=== PATIENT | female | born 1985 | race Caucasian/White ===

== ENCOUNTER 2017-11-22 05:24 | Inpatient (IN) | payer OTHER ==
[2017-11-22] MEDS ORDERED: Ondansetron 4 MG/2 ML SDV IVPUSH PRN (15:55)
[2017-11-22] MEDS ORDERED: Nalbuphine 20 MG/1 ML Amp IVPUSH PRN (15:55)
[2017-11-22] MEDS ORDERED: Sodium Chloride 0.9% 10 ML Syringe FLUSH PRN (15:55)
[2017-11-22] MEDS ORDERED: Lidocaine 1% 50 ML MDV INJECT ONE (15:55)
[2017-11-22] MEDS ORDERED: Oxytocin/Lactated Ringers 10 UNIT/1,000 ML BAG IV SCH (16:00)
[2017-11-22] MEDS: Lactated Ringers 1,000 ML IV SCH ×4 (20:26→23:23)
[2017-11-22] MEDS ORDERED: fentaNYL 100 MCG/2 ML SDV EPIDUR PRN (21:27)
[2017-11-22] MEDS ORDERED: diphenhydrAMINE 50 MG/ML SDV IVPUSH PRN (21:27)
[2017-11-22] MEDS ORDERED: ePHEDrine 50 MG/ML SDV IVPUSH PRN (21:27)
[2017-11-22] MEDS ORDERED: Bupivacaine/fentaNYL/NS 100 ML Bag EPIDUR SCH (21:30)
--- NOTE | 2017-11-22 21:31 | PCM.LDHP ---
L&D History of Present Illness - General Date of Service: 11/22/17 Admit Problem/Dx: Patient Status Order with Admit Dx/Problem 11/22/17 15:56 Patient Status [ADT] Routine Admission Diagnosis/Problem Admission Diagnosis/Problem Source of Information: Patient History Limitations: Reports: No Limitations - History of Present Illness Introduction:: Reason for admission: 40-4/7 weeks gestational age IUP, Artificial rupture membranes induction of labor History of present illness: The patient iis a 32-year-old 3 para 2001 was an KAVITA of 11/18/2017 is based upon a certain last menstrual which started on 02/11/2017 and is supported by ultrasounds on 05/04/2017 and 07/22/2017. Patient's previous history of section with her first in 2013. C- section done because of HELLP syndrome. Last patient desired to and was successful on 02/29/2016, delivering an 8 lbs. 1 oz. female infant here at [facility]. The procedure of repeat section versus attempt at trial of labor to achieve vaginal after section are discussed in detail. She appears to understand the procedure, risks, benefits, medications possibly to be used and wishes to again do a trial of labor after section to attempt a vaginal after section. She has signed consent for trial of labor after section for an attempt at vaginal after section and also for a repeat section. 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 The patient was seen early in the course of the and an ultrasound was done confirming her due date at 11/18/2017. First visit was at 11 weeks and 5 days. Weight at that time was 184. Weight at last visit at 209. This is a 25 pound weight gain. Her vital signs were stable throughout the course. Her blood pressure was 126/76 on last evaluation. Fundal height growth has been appropriate. Patient declined genetic evaluation. Her and her depression screening score 07/14/2017 was negative. Group B strep screen is negative. Risk factors include increased distance from the hospital, history of HELLP syndrome with her first child. Patient plans to breast-feed the baby. She is rubella nonimmune and therefore recommendation is made for an MMR post delivery in the labor and delivery. Laboratory testing shows her blood type to be B+ with a negative airway screen. First labs shows hemoglobin 13.8 and platelets of 277,000. Rubella titer shows nonimmunity. RPR shows her nonreactivity. Urine culture unremarkable. Hepatitis B surface antigen and HIV assays both negative. Chlamydia and gonorrhea assays both negative. Second trimester labs including Anisha 12.2 g she deciliter and platelets 201,000. Her 1 hour GTT was 92. She is group B strep negative. Allergies: none Medications: vitamins daily Past medical history: 1. Vaginal delivery 1 2.HELLP syndrome first 3. History of abnormal Pap smear with colposcopy following Past surgical history: 1. section for increased blood pressure and HELLP syndrome Family history: Mother is alive and with hypertension. Father with high cholesterol. 3 sisters and 2 brothers are alive and well. All grandparents to secondary to old age. No Pring C, clotting or bleeding abnormalities noted. Questionable paternal grandfather secondary to some type of cancer. Type unknown. 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 She does not use any significant most alcohol, drugs or tobacco. View systems: General patient doing well. Baby's been active. Occasional [place] contractions. Skin: Negative Cardiovascular: No history of exercise intolerance or chest pain Respiratory: No shortness of breath or infectious symptoms Breasts: Changes associated only GI: Negative : Findings associated . Cervix is 2 cm, 80% effaced, -3, mid position , soft. Musculoskeletal: Negative Neurological: Negative. Physical exam: Last dilation in clinic on 11/22/2017 blood pressure is 126/76, weight was 209 with pregravid weight 184 for weight gain of 25 pounds. heart rate 145. In general patient is well-developed, well-nourished, pleasant female stated no acute distress. Skin is warm and dry without lesions. HEENT, neck and back within normal limits. Cardiovascular exam shows regular and rhythm without murmurs. Lungs are clear with good breath sounds in all lung [place]. Breast exam is deferred abdomen done at her first visit and found to be normal. Abdomen is protuberant with fundal height of 39 cm baby in vertex presentation. Cervix is 2 cm dilated, 80% effaced, -3 station, mid position, soft. Extremities show trace edema otherwise unremarkable. Neurological exam is grossly within normal. 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: Other OB/BYN History: HELLP syndrome with - Past Surgical History Female Surgical History: Reports: Section Social & Family History - Family History Family Medical History: Noncontributory - Tobacco Use Smoking Status *Q: Never Smoker Second Hand Smoke Exposure: No - Caffeine Use Caffeine Use: Reports: Coffee Other Caffeine Use: 1-2 daily - Recreational Drug Use Recreational Drug Use: No H&P Review of Systems - Review of Systems: Review Of Systems: See Below L&D Exam - Exam Exam: See Below - Vital Signs Vital Signs: Last Vital Signs Temp 36.7 C 11/22/17 15:56 Pulse 77 11/22/17 15:56 Resp 18 11/22/17 15:56 BP 129/81 11/22/17 15:56 Pulse Ox 100 11/22/17 15:56 Weight: 95.708 kg - Patient Data Lab Results Last 24 hrs: Laboratory Results - last 24 hr 11/22/17 11/22/17 Range/Units 15:45 15:45 WBC 8.86 (3.98-10.04) K/mm3 RBC 4.18 (3.98-5.22) M/mm3 Hgb 12.6 (11.2-15.7) gm/L Hct 36.6 (34.1-44.9) % MCV 87.6 (79.4-94.8) fl MCH 30.1 (25.6-32.2) pg MCHC 34.4 (32.2-35.5) g/dl RDW Std Deviation 39.9 (36.4-46.3) fL Plt Count 205 (182-369) K/mm3 MPV 11.0 (9.4-12.3) fl Neut % (Auto) 81.0 H (34.0-71.1) % Lymph % (Auto) 12.2 L (19.3-51.7) % [place] % (Auto) 6.1 (4.7-12.5) % Eos % (Auto) 0.2 L (0.7-5.8) Baso % (Auto) 0.0 L (0.1-1.2) % Neut # (Auto) 7.18 H (1.56-6.13) K/mm3 Lymph # (Auto) 1.08 L (1.18-3.74) K/mm3 [place] # (Auto) 0.54 H (0.24-0.36) K/mm3 Eos # (Auto) 0.02 L (0.04-0.36) K/mm3 Baso # (Auto) 0.00 L (0.01-0.08) K/mm3 Blood Type B POSITIVE Gel Antibody Screen Negative Result Diagrams: 11/22/17 15:45 Problem List Initiated/Reviewed/Updated: Yes Orders Last 24hrs: Active Orders 24 hr Category Date Time Status Patient Status [ADT] Routine ADT 11/22/17 15:56 Active Activity as Tolerated [RC] PFP Care 11/22/17 15:56 Active Antiembolic Devices [RC] .Routine Care 11/22/17 15:57 Active Communication Order [RC] ASDIRECTED Care 11/22/17 15:56 Active Communication Order [RC] ASDIRECTED Care 11/22/17 15:56 Active Communication Order [RC] ASDIRECTED Care 11/22/17 15:56 Active Communication Order [RC] ASDIRECTED Care 11/22/17 15:56 Active Notify Provider [RC] ASDIRECTED Care 11/22/17 15:56 Active Notify Provider [RC] PFP Care 11/22/17 15:56 Active Notify Provider [RC] PRN Care 11/22/17 15:56 Active Peripheral IV Care [RC] . DIRECTED Care 11/22/17 15:56 Active Urinary Catheter Assessment [RC] ASDIRECTED Care 11/22/17 15:55 Active VTE/DVT Education [RC] Care 11/22/17 15:57 Active Vital Signs [RC] Care 11/22/17 15:56 Active Regular Diet [DIET] Diet 11/22/17 Lunch Active Lactated Ringers [Ringers, Lactated] 1,000 ml Med 11/22/17 16:00 Active IV ASDIRECTED Lactated Ringers [Ringers, Lactated] 1,000 ml Med 11/22/17 16:00 Active IV ASDIRECTED Nalbuphine [Nubain] Med 11/22/17 15:55 Active 10 mg IVPUSH Q2H PRN Ondansetron [Zofran] Med 11/22/17 15:55 Active 4 mg IVPUSH Q4H PRN Oxytocin [Pitocin] 10 unit Med 11/22/17 20:30 Active Lactated Ringers [Ringers, Lactated] 1,000 ml IV TITRATE Oxytocin/Lactated Ringers [Pitocin in LR 10 Units/1,000 Med 11/22/17 16:00 Active ML] 10 unit in 1,000 ml IV .CONTINUOUS Sodium Chloride 0.9% [Saline Flush] Med 11/22/17 15:55 Active 10 ml FLUSH ASDIRECTED PRN DVT/VTE Prophylaxis Reflex [OM.PC] Routine Ot 11/22/17 15:57 Ordered Electronic Heart Tones Ext w TOCO [WOMSER] Oth 11/22/17 15:56 Ordered Routine Electronic Heart Tones Internal [WOMSER] Per Unit Ot 11/22/17 15:56 Ordered Routine Peripheral IV Insertion Adult [OM.PC] Routine Oth 11/22/17 15:56 Ordered Peripheral IV Insertion Adult [OM.PC] Routine Ot 11/22/17 15:56 Ordered Resuscitation Status Routine Resus Stat 11/22/17 15:55 Ordered Medication Orders Lactated Ringer's (Ringers, Lactated) 1,000 mls @ 100 mls/hr IV ASDIRECTED ABEL Lactated Ringer's (Ringers, Lactated) 1,000 mls @ 40 mls/hr IV ASDIRECTED ABEL Last Admin: 11/22/17 20:26 Dose: 40 mls/hr Oxytocin/Lactated Ringer's (Pitocin In Lr 10 Units/1,000 Ml) 10 unit in 1,000 mls @ 500 mls/hr IV .CONTINUOUS ABEL Oxytocin 10 unit/ Lactated (Ringer's) 1,001 mls @ 12.01 mls/hr IV TITRATE ABEL; 2 MUNITS/MIN PRN Reason: Protocol Last Admin: 11/22/17 20:35 Dose: 2 munits/min, 12.01 mls/hr Nalbuphine HCl (Nubain) 10 mg IVPUSH Q2H PRN PRN Reason: Pain (moderate 4-6) Ondansetron HCl (Zofran) 4 mg IVPUSH Q4H PRN PRN Reason: Nausea/Vomiting Sodium Chloride (Saline Flush) 10 ml FLUSH ASDIRECTED PRN PRN Reason: Keep Vein Open Assessment/Plan Comment:: 1. 40-4/7 week intrauterine , admitted for elective induction of labor with artificial rupture membranes. 2. Risk factors for the include history of previous section, patient has successfully with last 3. History of HELLP syndrome with first requiring section due to effect delivery. 4. Rubella nonimmune 5. Group B strep screen is negative 6. T dap given on 09/05/2017 Plan: 1. Discussion is held patient has 2 risks, benefits and alternatives of care and a term living at approximately 100 miles distance from the hospital with a history of previous section with successful 1. She appears to understand, and wishes to receive a trial of labor after section to attempt a vaginal after section. 2. section labs have been drawn 3. Consents for both trial of labor after section for Avaginal after section and section 4. Laboratory testing consistent CBC, urinalysis, type and screen 5. We'll proceed with artificial rupture membranes, will give Pitocin augmentation as necessary. 6. Patient plans to breast-feed 7. Rubella vaccination to be given after delivery.
--- NOTE | 2017-11-22 22:02 | PCM.PREANE ---
Preanesthetic Assessment - Anesthesia/Transfusion/Family Hx Anesthesia History: Prior Anesthesia Without Reaction Family History of Anesthesia Reaction: No Transfusion History: No Prior Transfusion(s) Type of Transfusion Reactions: Reports: Unknown - Review of Systems General: No Symptoms Pulmonary: No Symptoms Cardiovascular: No Symptoms Gastrointestinal: No Symptoms Neurological: No Symptoms Other: Reports: None - Physical Assessment Pulse: 84 O2 Sat by Pulse Oximetry: 100 Respiratory Rate: 18 Blood Pressure: 124/72 Temperature: 36.3 C Vital Signs: Last Vital Signs Temp 36.7 C 11/22/17 15:56 Pulse 77 11/22/17 15:56 Resp 18 11/22/17 15:56 BP 129/81 11/22/17 15:56 Pulse Ox 100 11/22/17 15:56 Height: 1.68 m Weight: 95.708 kg ASA Class: 2 Mental Status: Alert & Oriented x3 Airway Class: Mallampati = 1 Dentition: Reports: Normal Dentition Thyro-Mental Finger Breadths: 3 Mouth Opening Finger Breadths: 3 ROM/Head Extension: Full Lungs: Clear to Auscultation, Normal Respiratory Effort Cardiovascular: Regular Rate, Regular Rhythm - Lab Values: Laboratory Last Values WBC 8.86 K/mm3 (3.98-10.04) 11/22/17 15:45 RBC 4.18 M/mm3 (3.98-5.22) 11/22/17 15:45 Hgb 12.6 gm/L (11.2-15.7) 11/22/17 15:45 Hct 36.6 % (34.1-44.9) 11/22/17 15:45 MCV 87.6 fl (79.4-94.8) 11/22/17 15:45 MCH 30.1 pg (25.6-32.2) 11/22/17 15:45 MCHC 34.4 g/dl (32.2-35.5) 11/22/17 15:45 RDW Std Deviation 39.9 fL (36.4-46.3) 11/22/17 15:45 Plt Count 205 K/mm3 (182-369) 11/22/17 15:45 MPV 11.0 fl (9.4-12.3) 11/22/17 15:45 Neut % (Auto) 81.0 % (34.0-71.1) H 11/22/17 15:45 Lymph % (Auto) 12.2 % (19.3-51.7) L 11/22/17 15:45 [place] % (Auto) 6.1 % (4.7-12.5) 11/22/17 15:45 Eos % (Auto) 0.2 (0.7-5.8) L 11/22/17 15:45 Baso % (Auto) 0.0 % (0.1-1.2) L 11/22/17 15:45 Neut # (Auto) 7.18 K/mm3 (1.56-6.13) H 11/22/17 15:45 Lymph # (Auto) 1.08 K/mm3 (1.18-3.74) L 11/22/17 15:45 [place] # (Auto) 0.54 K/mm3 (0.24-0.36) H 11/22/17 15:45 Eos # (Auto) 0.02 K/mm3 (0.04-0.36) L 11/22/17 15:45 Baso # (Auto) 0.00 K/mm3 (0.01-0.08) L 11/22/17 15:45 Blood Type B POSITIVE 11/22/17 15:45 Gel Antibody Screen Negative 11/22/17 15:45 - Allergies Allergies/Adverse Reactions: Allergies Allergy/AdvReac Type Severity Reaction Status Date / Time No Known Allergies Allergy Verified 11/22/17 19:21 - Anesthesia Plan Pre-Op Medication Ordered: None - Acknowledgements Anesthesia Type Planned: Epidural Pt an Appropriate Candidate for the Planned Anesthesia: Yes Alternatives and Risks of Anesthesia Discussed w Pt/Guardian: Yes Pt/Guardian Understands and Agrees with Anesthesia Plan: Yes PreAnesthesia Questionnaire - Past Health History Medical/Surgical History: Denies Medical/Surgical History Gastrointestinal History: Reports: GERD 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 OB/BYN History: HELLP syndrome with - Past Surgical History Female Surgical History: Reports: Section - SUBSTANCE USE Smoking Status *Q: Never Smoker Second Hand Smoke Exposure: No Recreational Drug Use History: No - HOME MEDS Home Medications: Home Meds Pnv No.122/Iron/Folic Acid [ Multi Tablet] 1 each PO DAILY 11/22/17 [ History] - CURRENT (IN HOUSE) MEDS Current Meds: Current Medications Diphenhydramine HCl (Benadryl) 25 mg IVPUSH Q6H PRN PRN Reason: Itching Ephedrine Sulfate (Ephedrine Sulfate) 5 mg IVPUSH ASDIRECTED PRN PRN Reason: HYPOTENTSION Fentanyl (Sublimaze) 100 mcg EPIDUR Q3H PRN PRN Reason: PAIN Last Admin: 11/22/17 21:54 Dose: 100 mcg Fentanyl/Bupivacaine HCl (Fentanyl/Bupivacaine/Ns 2 Mcg-0.125% 100 Ml) 100 ml EPIDUR ASDIRECTED ABEL Last Admin: 11/22/17 21:54 Dose: 100 ml Lactated Ringer's (Ringers, Lactated) 1,000 mls @ 100 mls/hr IV ASDIRECTED ABEL Last Admin: 11/22/17 21:34 Dose: 100 mls/hr Lactated Ringer's (Ringers, Lactated) 1,000 mls @ 40 mls/hr IV ASDIRECTED [facility] Last Admin: 11/22/17 20:26 Dose: 40 mls/hr Oxytocin/Lactated Ringer's (Pitocin In Lr 10 Units/1,000 Ml) 10 unit in 1,000 mls @ 500 mls/hr IV .CONTINUOUS ABEL Oxytocin 10 unit/ Lactated (Ringer's) 1,001 mls @ 12.01 mls/hr IV TITRATE ABEL; 2 MUNITS/MIN PRN Reason: Protocol Last Admin: 11/22/17 20:35 Dose: 2 munits/min, 12.01 mls/hr Nalbuphine HCl (Nubain) 10 mg IVPUSH Q2H PRN PRN Reason: Pain (moderate 4-6) Ondansetron HCl (Zofran) 4 mg IVPUSH Q4H PRN PRN Reason: Nausea/Vomiting Sodium Chloride (Saline Flush) 10 ml FLUSH ASDIRECTED PRN PRN Reason: Keep Vein Open Discontinued Medications Lidocaine HCl (Xylocaine 1%) 20 ml INJECT ONETIME ONE Stop: 11/22/17 15:56
[2017-11-23] MEDS: Lactated Ringers 1,000 ML IV SCH (02:56)
[2017-11-23] MEDS ORDERED: Witch Hazel Medicated Pads 100/Jar TOP PRN (05:47)
[2017-11-23] MEDS ORDERED: Lanolin 100% Cream 7 GM Tube TOP PRN (05:47)
[2017-11-23] MEDS ORDERED: Docusate Sodium 100 MG Cap PO PRN (05:47)
[2017-11-23] MEDS ORDERED: Acetaminophen 325 MG Tab PO PRN (05:47)
[2017-11-23] MEDS ORDERED: Benzocaine/Menthol 20%-0.5% Spray 56 GM Canister TOP PRN (05:47)
--- NOTE | 2017-11-23 05:49 | PCM.SN ---
- Free Text/Narrative Note: Delivery note: Chichi was admitted on the afternoon of 11/22/2017 for elective artificial rupture membranes induction of labor. She was 40-3/7 weeks gestational age on admission. Artificial rupture of membranes was undertaken with resultant clear amniotic fluid. She progressed into an early labor pattern. She was augmented with Pitocin and intensify the contractions. Patient has had a previous section which was done for HELLP syndrome. She previously successfully VBACed and wished to attempt a trial labor after section again. The risks, benefits, cautions were all discussed patient. She signed the consent for both the trial of labor after section and A repeat section. Routine precautions such as obtaining C- section labs, informing the surgical department and anesthesia that patient was in labor and near continuous monitoring were all put in place. She made slow but steady progress and at approximately 0450 hrs. on 11/23/2017 she became completely dilated. she pushed 3 contractions and at 0524 hrs. delivered a viable, cade, male infant with Apgars of 8/9 , a weight of 3690 grams (8#, 2 oz), a length of 21 inches. The baby delivered in a direct occiput anterior position. Nose and mouth were bulb suctioned and baby was placed on mom's abdomen. The cord was clamped 2 and was cut by the father. The umbilical cord had 3 vessels. Cord blood was obtained. Dose was administered IV after delivery of the baby to facilitate increase in uterine tone and decrease bleeding. Patient had no vaginal or perineal lacerations. The placenta delivered at 0528 hrs. in a Negro presentation, appeared intact and complete. It was discarded per patient desire. Estimated blood loss was 100 mL. Patient plans to breast-feed. Condition was good.
[2017-11-23] MEDS: Ibuprofen 600 MG Tab PO PRN ×3 (06:36→21:31)
--- NOTE | 2017-11-23 09:45 | PCM48HPAN ---
Post Anesthesia Note - EVALUATION WITHIN 48HRS OF ANESTHETIC Vital Signs in Normal Range: Yes Patient Participated in Evaluation: Yes Respiratory Function Stable: Yes Airway Patent: Yes Cardiovascular Function Stable: Yes Hydration Status Stable: Yes Pain Control Satisfactory: Yes Nausea and Vomiting Control Satisfactory: Yes Mental Status Recovered: Yes - COMMENTS/OBSERVATIONS Free Text/Narrative:: Patient doing well resting in chair. No complaints of back pain, residual numbness or tingling to LE, or headaches.
[2017-11-23] MEDS: Prenatal Multivitamin with Calcium/Folic Acid/Iron Tab PO SCH (10:16)
[2017-11-23] MEDS ORDERED: Measles, Mumps & Rubella Vaccine 0.5 ML SDV SUBCUT ONE (20:36)
[2017-11-23] MEDS ORDERED: Bupivacaine 0.25% 10 ML SDV ONE (22:22)
[2017-11-24] MEDS: Ibuprofen 600 MG Tab PO PRN (05:58)
--- NOTE | 2017-11-24 06:30 | PCM.DCSUM1 ---
Discharge Summary - Hospital Course Free Text/Narrative:: Chichi was admitted on the afternoon of 11/22/2017 for elective artificial rupture membranes induction of labor. She was 40-3/7 weeks gestational age on admission. Artificial rupture of membranes was undertaken with resultant clear amniotic fluid. She progressed into an early labor pattern. She was augmented with Pitocin and intensify the contractions. Patient has had a previous section which was done for HELLP syndrome. She previously successfully VBACed and wished to attempt a trial labor after section again. The risks, benefits, cautions were all discussed patient. She signed the consent for both the trial of labor after section and A repeat section. Routine precautions such as obtaining labs, informing the surgical department and anesthesia that patient was in labor and near continuous monitoring were all put in place. She made slow but steady progress and at approximately 0450 hrs. on 11/23/2017 she became completely dilated. she pushed 3 contractions and at 0524 hrs. delivered a viable, cade, male with Apgars of 8/9 , a weight of 3690 grams (8#, 2 oz), a length of 21 inches. The baby delivered in a direct occiput anterior position. Nose and mouth were bulb suctioned and baby was placed on mom's abdomen. The cord was clamped 2 and was cut by the father. The umbilical cord had 3 vessels. Cord blood was obtained. Dose was administered IV after delivery of the baby to facilitate increase in uterine tone and decrease bleeding. Patient had no vaginal or perineal lacerations. The placenta delivered at 0528 hrs. in a Negro presentation, appeared intact and complete. It was discarded per patient desire. Estimated blood loss was 100 mL. Patient plans to breast-feed. patient has done well. She is ambulating well, nursing without problems. She is voiding without concerns and has minimal lochia. Patient is desiring discharge home today. Her vital signs were stable. She has been afebrile. - Discharge Data Discharge Date: 11/24/17 Discharge Disposition: Home, Self-Care 01 Condition: Good - Patient Instructions Diet: Regular Diet as Tolerated (Nursing diet was increased calories and calcium as directed) Activity: As Tolerated (No intercourse or tampons until bleeding stops.) Driving: May Drive Today Showering/Bathing: May Shower Notify Provider of: Fever, Increased Pain, Swelling and Redness, Nausea and/or Vomiting - Discharge Plan Home Medications: Home Meds Pnv No.122/Iron/Folic Acid [ Multi Tablet] 1 each PO DAILY 11/22/17 [ History] Acetaminophen [Tylenol] 650 mg PO Q4H PRN tablet 11/24/17 [Rx] Docusate Sodium [Colace] 100 mg PO BID PRN cap 11/24/17 [Rx] Ibuprofen [IJD: Ibuprofen] 600 mg PO Q4H PRN tablet 11/24/17 [Rx] Referrals: Kemal Ribeiro MD [Physician] - (Return to clinicDr. Ribeiro-2 weeks.) - Discharge Summary/Plan Comment DC Time >30 min.: No Discharge Summary/Plan Comment: Discharge instructions: 1. Discharge home 2. Diet, activity and follow-up discussed with patient. Recommend nursing diet with increased calories and calcium. 3. Precautions given concern increased pain, bleeding, temperature, signs/ symptoms of DVT/PE. 4. Medications per home medication was printed, discussed with and given to the patient. 5. Return to clinic-Dr. Ribeiro[facility] in 2 weeks. Diagnosis: Term -delivered Condition: Good - Patient Data Vitals - Most Recent: Last Vital Signs Temp 36.8 C 11/23/17 20:12 Pulse 79 11/23/17 20:12 Resp 18 11/23/17 20:12 BP 117/80 11/23/17 20:12 Pulse Ox 99 11/23/17 20:12 Weight - Most Recent: 95.708 kg I&O - Last 24 hours: Intake & Output 11/23/17 11/23/17 11/24/17 14:59 22:59 06:59 Intake Total 1320 Balance 1320 Med Orders - Current: Current Medications Acetaminophen (Tylenol) 650 mg PO Q4H PRN PRN Reason: mild pain or fever Benzocaine/Menthol (Dermoplast Pain Relief [place]) 0 gm TOP ASDIRECTED PRN PRN Reason: Perineal Comfort Measure Docusate Sodium (Colace) 100 mg PO BID PRN PRN Reason: Constipation Emollient Ointment (Lansinoh Hpa) 0 gm TOP ASDIRECTED PRN PRN Reason: Sore Nipples Ibuprofen (Motrin) 600 mg PO Q4H PRN PRN Reason: Mild pain or fever Last Admin: 11/24/17 05:58 Dose: 600 mg Prenat Multivit/[place]/Iron/Folic Ac ( Plus Iron) 1 each PO DAILY ABEL Last Admin: 11/23/17 10:16 Dose: 1 each [place] (Tucks) 1 pad TOP ASDIRECTED PRN PRN Reason: Hemorrhoid pain Last Admin: 11/23/17 06:37 Dose: 1 tub Discontinued Medications Bupivacaine HCl (Sensorcaine-Mpf 0.25%) 10 ml .ROUTE .STK-MED ONE Stop: 11/23/17 22:23 Diphenhydramine HCl (Benadryl) 25 mg IVPUSH Q6H PRN PRN Reason: Itching Ephedrine Sulfate (Ephedrine Sulfate) 5 mg IVPUSH ASDIRECTED PRN PRN Reason: HYPOTENTSION Fentanyl (Sublimaze) 100 mcg EPIDUR Q3H PRN PRN Reason: PAIN Last Admin: 11/22/17 21:54 Dose: 100 mcg Fentanyl/Bupivacaine HCl (Fentanyl/Bupivacaine/Ns 2 Mcg-0.125% 100 Ml) 100 ml EPIDUR ASDIRECTED [facility] Last Admin: 11/22/17 21:54 Dose: 100 ml Lactated Ringer's (Ringers, Lactated) 1,000 mls @ 100 mls/hr IV ASDIRECTED [facility] Last Admin: 11/23/17 02:56 Dose: 100 mls/hr Lactated Ringer's (Ringers, Lactated) 1,000 mls @ 40 mls/hr IV ASDIRECTED [facility] Last Admin: 11/22/17 22:15 Dose: 125 mls/hr Oxytocin/Lactated Ringer's (Pitocin In Lr 10 Units/1,000 Ml) 10 unit in 1,000 mls @ 500 mls/hr IV .CONTINUOUS [facility] Oxytocin 10 unit/ Lactated (Ringer's) 1,001 mls @ 12.01 mls/hr IV TITRATE ABEL; 2 MUNITS/MIN PRN Reason: Protocol Last Titration: 11/23/17 06:30 Dose: 250 mls/hr Lidocaine HCl (Xylocaine 1%) 20 ml INJECT ONETIME ONE Stop: 11/22/17 15:56 Last Admin: 11/23/17 13:44 Dose: Not Given Measles/Mumps/Rubella Vaccine Live (M-M-R Ii Vaccine) 0.5 ml SUBCUT .ONCE ONE Stop: 11/23/17 20:37 Last Admin: 11/23/17 20:45 Dose: 0.5 ml Nalbuphine HCl (Nubain) 10 mg IVPUSH Q2H PRN PRN Reason: Pain (moderate 4-6) Ondansetron HCl (Zofran) 4 mg IVPUSH Q4H PRN PRN Reason: Nausea/Vomiting Sodium Chloride (Saline Flush) 10 ml FLUSH ASDIRECTED PRN PRN Reason: Keep Vein Open *Q Meaningful Use (DIS) - VTE *Q VTE Criteria *Q: - Stroke *Q Stroke Criteria *Q: - AMI *Q AMI Criteria *Q:
[2017-11-24] MEDS: Prenatal Multivitamin with Calcium/Folic Acid/Iron Tab PO SCH (08:41)
[2017-11-24 08:56] VITALS: BP 118/78
== END 2017-11-24 09:30 | disposition home or self-care (01) | DRG 775 ==
LOC: JD.OB 05:24 → INTOOBSV 14:43 → OBSVTOIN 11-23 05:24 → JD.OB 11-23 05:24
PROVIDERS: ADMIT Obstetrics & Gynecology; ATTEND Obstetrics & Gynecology
PROC: 10E0XZZ Delivery of Products of Conception, External Approach (ICD-10-PCS; principal; 2017-11-23)
PROC: 10907ZC Drainage of Amniotic Fluid, Therapeutic from Products of Conception, Via Natural or Artificial Opening (ICD-10-PCS; 2017-11-23)
PROC: 00HU33Z Insertion of Infusion Device into Spinal Canal, Percutaneous Approach (ICD-10-PCS; 2017-11-23)
PROC: 3E0R3BZ Introduction of Anesthetic Agent into Spinal Canal, Percutaneous Approach (ICD-10-PCS; 2017-11-23)
PROC: 3E0234Z Introduction of Serum, Toxoid and Vaccine into Muscle, Percutaneous Approach (ICD-10-PCS; 2017-11-24)
DX: O48.0 Post-term pregnancy (principal); Z3A.41 41 weeks gestation of pregnancy; Z37.0 Single live birth; O34.211 Maternal care for low transverse scar from previous cesarean delivery; N85.8 Other specified noninflammatory disorders of uterus; Z23 Encounter for immunization
CPT/HCPCS: 36415; 51702; 59409; 85025; 85027; 86850; 86900; 86901; 90471; 90707; A9270-GY; J2590; J3010; J7120

== ENCOUNTER 2020-03-05 12:10 | Inpatient (IN) | payer OTHER ==
[2020-03-05] MEDS ORDERED: Nalbuphine 10 MG/ML Syringe IVPUSH PRN (12:19)
[2020-03-05] MEDS ORDERED: Sodium Chloride 0.9% 10 ML Syringe FLUSH PRN (12:19)
[2020-03-05] MEDS ORDERED: Ondansetron 4 MG/2 ML SDV IVPUSH PRN (12:19)
[2020-03-05] MEDS ORDERED: Oxytocin 10 Units/1 ML SDV IM ONE (12:19)
[2020-03-05] MEDS ORDERED: Oxytocin/Lactated Ringers 10 UNIT/1,000 ML BAG IV SCH ×2 (12:30)
[2020-03-05] MEDS: Lactated Ringers 1,000 ML IV SCH ×2 (13:25→15:15)
[2020-03-05] MEDS ORDERED: diphenhydrAMINE 50 MG/ML SDV IVPUSH PRN (14:10)
[2020-03-05] MEDS ORDERED: Bupivacaine/fentaNYL/NS 100 ML Bag EPIDUR PRN (14:10)
[2020-03-05] MEDS ORDERED: ePHEDrine 50 MG/ML SDV IVPUSH PRN (14:10)
[2020-03-05] MEDS ORDERED: fentaNYL 100 MCG/2 ML SDV EPIDUR PRN (14:10)
--- NOTE | 2020-03-05 15:14 | PCM.PREANE ---
Preanesthetic Assessment - Procedure Proposed Procedure: lizzie - Anesthesia/Transfusion/Family Hx Anesthesia History: Prior Anesthesia Without Reaction Family History of Anesthesia Reaction: No Transfusion History: No Prior Transfusion(s) Type of Transfusion Reactions: Reports: Unknown - Review of Systems General: No Symptoms Pulmonary: No Symptoms Cardiovascular: No Symptoms Gastrointestinal: No Symptoms Neurological: No Symptoms Other: Reports: None - Physical Assessment Vital Signs: Last Vital Signs Temp 97.6 F 03/05/20 12:19 Pulse 74 03/05/20 12:19 Resp 15 03/05/20 12:19 BP 127/82 03/05/20 12:19 Pulse Ox Height: 5 ft 6 in Weight: 98.43 kg ASA Class: 2 Mental Status: Alert & Oriented x3 Airway Class: Mallampati = 1 Dentition: Reports: Normal Dentition Thyro-Mental Finger Breadths: 3 Mouth Opening Finger Breadths: 3 ROM/Head Extension: Full Lungs: Clear to Auscultation, Normal Respiratory Effort Cardiovascular: Regular Rate, Regular Rhythm, No Murmurs - Lab Values: Laboratory Last Values WBC 9.65 K/mm3 (3.98-10.04) 03/05/20 12:31 RBC 4.46 M/mm3 (3.98-5.22) 03/05/20 12:31 Hgb 13.5 gm/dl (11.2-15.7) D 03/05/20 12:31 Hct 40.0 % (34.1-44.9) 03/05/20 12:31 MCV 89.7 fl (79.4-94.8) 03/05/20 12:31 MCH 30.3 pg (25.6-32.2) 03/05/20 12:31 MCHC 33.8 g/dl (32.2-35.5) 03/05/20 12:31 RDW Std Deviation 42.5 fL (36.4-46.3) 03/05/20 12:31 Plt Count 168 K/mm3 (182-369) L 03/05/20 12:31 MPV 11.2 fl (9.4-12.3) 03/05/20 12:31 Neut % (Auto) 75.9 % (34.0-71.1) H 03/05/20 12:31 Lymph % (Auto) 15.1 % (19.3-51.7) L 03/05/20 12:31 [place]row % (Auto) 7.8 % (4.7-12.5) 03/05/20 12:31 Eos % (Auto) 0.4 (0.7-5.8) L 03/05/20 12:31 Baso % (Auto) 0.1 % (0.1-1.2) 03/05/20 12:31 Neut # (Auto) 7.32 K/mm3 (1.56-6.13) H 03/05/20 12:31 Lymph # (Auto) 1.46 K/mm3 (1.18-3.74) 03/05/20 12:31 [place]row # (Auto) 0.75 K/mm3 (0.24-0.36) H 03/05/20 12:31 Eos # (Auto) 0.04 K/mm3 (0.04-0.36) 03/05/20 12:31 Baso # (Auto) 0.01 K/mm3 (0.01-0.08) 03/05/20 12:31 Blood Type B POSITIVE 03/05/20 12:31 Gel Antibody Screen Negative 03/05/20 12:31 - Allergies Allergies/Adverse Reactions: Allergies Allergy/AdvReac Type Severity Reaction Status Date / Time No Known Allergies Allergy Verified 11/22/17 19:21 - Blood Blood Available: No - Acknowledgements Anesthesia Type Planned: Epidural Pt an Appropriate Candidate for the Planned Anesthesia: Yes Alternatives and Risks of Anesthesia Discussed w Pt/Guardian: Yes Pt/Guardian Understands and Agrees with Anesthesia Plan: Yes PreAnesthesia Questionnaire - Past Health History Medical/Surgical History: Denies Medical/Surgical History Cardiovascular History: Reports: None Respiratory History: Reports: None 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 OB/BYN History: HELLP syndrome with - Past Surgical History Female Surgical History: Reports: Section - SUBSTANCE USE Smoking Status *Q: Never Smoker Tobacco Use Within Last Twelve Months: No Second Hand Smoke Exposure: No Days Per Week of Alcohol Use: 0 Recreational Drug Use History: No - HOME MEDS Home Medications: Home Meds No122/Iron/Folic Acid [ Multi Tablet] 1 each PO DAILY 11/22/17 [History] Aspirin [Aspirin EC] 81 mg PO DAILY 03/05/20 [History] Iron,Carbonyl [Perfect Iron] 25 mg PO DAILY 03/05/20 [History] - CURRENT (IN HOUSE) MEDS Current Meds: Current Medications Diphenhydramine HCl (Benadryl) 25 mg IVPUSH Q6H PRN PRN Reason: pruritis Ephedrine Sulfate (Ephedrine Sulfate) 5 mg IVPUSH ASDIRECTED PRN PRN Reason: Hypotension Fentanyl (Sublimaze) 100 mcg EPIDUR Q3H PRN PRN Reason: Pain Last Admin: 03/05/20 14:51 Dose: 100 mcg Fentanyl/Bupivacaine HCl (Fentanyl/Bupivacaine/Ns 2 Mcg-0.125% 100 Ml) 100 ml EPIDUR ASDIRECTED PRN PRN Reason: Pain Last Admin: 03/05/20 14:52 Dose: 100 ml Lactated Ringer's (Ringers, Lactated) 1,000 mls @ 100 mls/hr IV ASDIRECTED ABEL Last Admin: 03/05/20 13:25 Dose: 100 mls/hr Oxytocin/Lactated Ringer's (Pitocin In Lr 10 Units/1,000 Ml) 10 unit in 1,000 mls @ 12 mls/hr IV TITRATE ABEL; Protocol Last Titration: 03/05/20 14:30 Dose: 0 munits/min, 0 mls/hr Oxytocin/Lactated Ringer's (Pitocin In Lr 10 Units/1,000 Ml) 10 unit in 1,000 mls @ 100 mls/hr IV .CONTINUOUS ABEL; Protocol Nalbuphine HCl (Nubain) 10 mg IVPUSH Q2H PRN PRN Reason: Pain Ondansetron HCl (Zofran) 4 mg IVPUSH Q4H PRN PRN Reason: Nausea/Vomiting Sodium Chloride (Saline Flush) 10 ml FLUSH ASDIRECTED PRN PRN Reason: Keep Vein Open Discontinued Medications Oxytocin (Pitocin) 10 unit IM ONETIME ONE Stop: 03/05/20 12:20
--- NOTE | 2020-03-05 16:54 | PCM.LDHP ---
L&D History of Present Illness - General Date of Service: 03/05/20 Admit Problem/Dx: Patient Status Order with Admit Dx/Problem 03/05/20 12:19 Patient Status [ADT] Routine Admission Diagnosis/Problem Admission Diagnosis/Problem 03/05/20 16:38 Chichi is a 34-year-old 4 para 3003 white female who is admitted on the afternoon of 03/05/2020 at 40-1/7 weeks gestational age with a final KAVITA of 2019 for elective induction of labor. Patient has a history of section with her first delivery was done for HELLP syndrome. She has successfully 2 and is desiring with this . Source of Information: Patient History Limitations: Reports: No Limitations - History of Present Illness Introduction:: Chichi is a 34-year-old 4 para 3003 white female who is admitted on the afternoon of 03/05/2020 at 40-1/7 weeks gestational age with a final KAVITA of 2019 for elective induction of labor. Patient has a history of section with her first delivery was done for HELLP syndrome. She has successfully 2 and is desiring with this .The process of , its risks, benefits, limitations and follow-up and possible need to do a repeat section discussed in detail the patient. 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 KAVITA 02/25/2020 as determined by certain LMP starting 05/29/2019 and supported by 2 ultrasounds done on 08/16/2019 end 2018. Patient has a history of menarche at age 11. Cycles every 28 days. Not using any control at time conception. Her past obstetrical history includes the followin. Female born 04/16/2016 at 37 weeks gestational age 6 lbs. 2 oz. Primary section done in [place], [place] for HELLP syndrome. Child's name is Kayden. 2. Female born 02/29/2018 at 40-4/7 weeks gestational age8 lbs. 1 oz. Vaginal after section with epidural for analgesia at [place], [place]. 3. Male born 11/23/2019 at 40 and 57 weeks gestational age after 12 hours of labor. Born via normal spontaneous vaginal delivery . Epidural for analgesia. [facility]. Child's name is Cristo Bermudez. course: Patient was seen for her first pill visit on 08/16/2019 at 11 and 27 weeks gestational age. She is seen on a regular basis throughout the . She had a normal weight gain from 190.6 pounds to 217 pounds. This resulted in a 27.4 pound weight increase. Her vital signs remained stable throughout the course. Fundal height growth was appropriate. She had her T dap immunization on 01/30/2020. She is rubella immune. She has been advised as to trial of labor after section for an attempt at vaginal after section, its risks, benefits, precautions to be taken and potential for repeat section, compromise of the baby's well-being or mom's well-being. She appears to understand and wishes to proceed. EPDS score on 10/18/2019 was 0/30. Laboratory testing in shows blood to be B+ with a negative antibody screen. Hemoglobin first pill visit was 14.0 g/dL. Platelets were 295,000. She is rubella immune. RPR is nonreactive. Urine culture is negative. Hepatitis B surface antigen and HIV assays were both negative. Gonorrhea and chlamydia tests were both negative. Second trimester labs showed hemoglobin 11.9 g/dL and platelets at 214,000. Her 1 hour GTT was normal at 99. Repeat RPR on 12/10/2019 was nonreactive. The strep screen was negative. Noninvasive testing was negative for trisomy 21, 18 and 13. Baby is identified as female gender. Allergies: None Medications: 1. Baby aspirin 81 mg by mouth daily 2. vitamins 1 by mouth daily. Past medical history: 1. HELLP syndrome with her first delivered by 2. Normal spontaneous vaginal delivery 2 secondary third 3. Abnormal Pap smear result and colposcopy. Past surgical history: 1. as above. Family history: Mother is alive with hypertension. Father with history of high cholesterol. 3 sisters and brothers were alive and well. All grandparents are secondary to old age. No , clotting, bleeding problems noted in the family. Her paternal grandfather is secondary to cancer type unknown. Social history: Patient is . 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 She is college graduate. is Mayra. She does not use any significant amounts of alcohol, drugs or tobacco. Review of systems: In general patient has no complaints. The baby has been active. No signs or symptoms of preeclampsia. Skin: Negative Lungs: No infectious symptoms or shortness of breath Cardiovascular: No chest pain or exercise intolerance Breasts: No lumps, changes in size, pain, dimpling, discharge or axillary or supraclavicular concerns. Increased size and tenderness associated with GI: Negative : changes Musculoskeletal: Negative Neurological: Negative In general the patient is well-developed, well-nourished, pleasant female of stated age in no acute distress. On last evaluation in clinic patient's blood pressure was 128/80. Weight was 217 with a pregravid weight 190.6. Height is 5 feet 6 inches. Prepregnancy body mass index is 29.9. heart rate was 144 BPM. Skin is warm dry without lesions. HEENT, neck and back within normal limits. Lungs are clear with good breath sounds in all lung quezada. Cardiovascular exam shows regular and rhythm without murmurs. Breasts exam is deferred having that done first visit and found to be normal. Abdomen is gravid with fundal height of 39.5 cm. Baby in vertex presentation by John maneuver. Genital exam per digital evaluation at last clinic visit shows cervix to be 2 cm , 50% effaced, soft, mid position, -3 station.. Extremities and neurological exam are grossly within normal limits. 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 OB/BYN History: HELLP syndrome with - Past Surgical History Female Surgical History: Reports: Section Social & Family History - Family History Family Medical History: Noncontributory - Tobacco Use Smoking Status *Q: Never Smoker Second Hand Smoke Exposure: No - Caffeine Use Caffeine Use: Reports: None Other Caffeine Use: 1-2 daily - Alcohol Use Days Per Week of Alcohol Use: 0 - Recreational Drug Use Recreational Drug Use: No H&P Review of Systems - Review of Systems: Review Of Systems: See Below L&D Exam - Exam Exam: See Below - Vital Signs Vital Signs: Last Vital Signs Temp 36.4 C 03/05/20 12:19 Pulse 74 03/05/20 12:19 Resp 15 03/05/20 12:19 BP 127/82 03/05/20 12:19 Pulse Ox Weight: 98.43 kg - Patient Data Lab Results Last 24 hrs: Laboratory Results - last 24 hr 03/05/20 03/05/20 Range/Units 12:31 12:31 WBC 9.65 (3.98-10.04) K/mm3 RBC 4.46 (3.98-5.22) M/mm3 Hgb 13.5 D (11.2-15.7) gm/dl Hct 40.0 (34.1-44.9) % MCV 89.7 (79.4-94.8) fl MCH 30.3 (25.6-32.2) pg MCHC 33.8 (32.2-35.5) g/dl RDW Std Deviation 42.5 (36.4-46.3) fL Plt Count 168 L (182-369) K/mm3 MPV 11.2 (9.4-12.3) fl Neut % (Auto) 75.9 H (34.0-71.1) % Lymph % (Auto) 15.1 L (19.3-51.7) % [place] % (Auto) 7.8 (4.7-12.5) % Eos % (Auto) 0.4 L (0.7-5.8) Baso % (Auto) 0.1 (0.1-1.2) % Neut # (Auto) 7.32 H (1.56-6.13) K/mm3 Lymph # (Auto) 1.46 (1.18-3.74) K/mm3 [place] # (Auto) 0.75 H (0.24-0.36) K/mm3 Eos # (Auto) 0.04 (0.04-0.36) K/mm3 Baso # (Auto) 0.01 (0.01-0.08) K/mm3 Blood Type B POSITIVE Gel Antibody Screen Negative Result Diagrams: 03/05/20 12:31 Problem List Initiated/Reviewed/Updated: Yes Orders Last 24hrs: Active Orders 24 hr Category Date Time Status Patient Status [ADT] Routine ADT 03/05/20 12:19 Active Activity as Tolerated [RC] PFP Care 03/05/20 12:19 Active Communication Order [RC] ASDIRECTED Care 03/05/20 12:19 Active Heart Tones [RC] ASDIRECTED Care 03/05/20 12:19 Active Notify Provider [RC] ASDIRECTED Care 03/05/20 14:11 Active Notify Provider [RC] PFP Care 03/05/20 12:19 Active Notify Provider [RC] PRN Care 03/05/20 12:19 Active Peripheral IV Care [RC] . DIRECTED Care 03/05/20 12:19 Active Pump Management, Intrathecal [RC] ASDIRECTED Care 03/05/20 12:21 Active Urinary Catheter Assessment [RC] ASDIRECTED Care 03/05/20 12:19 Active Vital Signs [RC] PER UNIT ROUTINE Care 03/05/20 12:19 Active Regular Diet [DIET] Diet 03/05/20 Breakfast Active RAPID PLASMA REAGIN,RPR [CHEM] Routine Lab 03/05/20 12:31 Received Bupivacaine/fentaNYL/NS [fentaNYL/Bupivacaine/NS 2 MCG- Med 03/05/20 14:10 Active 0.125% 100 ML] 100 ml EPIDUR ASDIRECTED PRN Lactated Ringers [Ringers, Lactated] 1,000 ml Med 03/05/20 12:30 Active IV ASDIRECTED Nalbuphine [Nubain] Med 03/05/20 12:19 Active 10 mg IVPUSH Q2H PRN Ondansetron [Zofran] Med 03/05/20 12:19 Active 4 mg IVPUSH Q4H PRN Oxytocin/Lactated Ringers [Pitocin in LR 10 Units/1,000 Med 03/05/20 12:30 Active ML] 10 unit in 1,000 ml IV .CONTINUOUS Oxytocin/Lactated Ringers [Pitocin in LR 10 Units/1,000 Med 03/05/20 12:30 Active ML] 10 unit in 1,000 ml IV TITRATE Sodium Chloride 0.9% [Saline Flush] Med 03/05/20 12:19 Active 10 ml FLUSH ASDIRECTED PRN diphenhydrAMINE [Benadryl] Med 03/05/20 14:10 Active 25 mg IVPUSH Q6H PRN ePHEDrine [ePHEDrine sulfate] Med 03/05/20 14:10 Active 5 mg IVPUSH ASDIRECTED PRN fentaNYL [Sublimaze] Med 03/05/20 14:10 Active 100 mcg EPIDUR Q3H PRN Electronic Heart Tones Ext w TOCO [WOMSER] Oth 03/05/20 12:19 Ordered Routine Electronic Heart Tones Internal [WOMSER] Per Unit Oth 03/05/20 12:19 Ordered Routine Peripheral IV Insertion Adult [OM.PC] Routine Oth 03/05/20 12:19 Ordered Resuscitation Status Routine Resus Stat 03/05/20 12:19 Ordered Medication Orders Diphenhydramine HCl (Benadryl) 25 mg IVPUSH Q6H PRN PRN Reason: pruritis Ephedrine Sulfate (Ephedrine Sulfate) 5 mg IVPUSH ASDIRECTED PRN PRN Reason: Hypotension Fentanyl (Sublimaze) 100 mcg EPIDUR Q3H PRN PRN Reason: Pain Last Admin: 03/05/20 14:51 Dose: 100 mcg Fentanyl/Bupivacaine HCl (Fentanyl/Bupivacaine/Ns 2 Mcg-0.125% 100 Ml) 100 ml EPIDUR ASDIRECTED PRN PRN Reason: Pain Last Admin: 03/05/20 14:52 Dose: 100 ml Lactated Ringer's (Ringers, Lactated) 1,000 mls @ 100 mls/hr IV ASDIRECTED ABEL Last Admin: 03/05/20 15:15 Dose: 100 mls/hr Infusion: 03/05/20 15:15 Dose: 0 mls/hr Admin: 03/05/20 13:25 Dose: 100 mls/hr Oxytocin/Lactated Ringer's (Pitocin In Lr 10 Units/1,000 Ml) 10 unit in 1,000 mls @ 12 mls/hr IV TITRATE ABEL; Protocol Last Titration: 03/05/20 16:33 Dose: 8 munits/min, 48 mls/hr Titration: 03/05/20 16:12 Dose: 6 munits/min, 36 mls/hr Titration: 03/05/20 15:58 Dose: 4 munits/min, 24 mls/hr Titration: 03/05/20 15:42 Dose: 2 munits/min, 12 mls/hr Titration: 03/05/20 14:30 Dose: 0 munits/min, 0 mls/hr Titration: 03/05/20 14:05 Dose: 4 munits/min, 24 mls/hr Admin: 03/05/20 13:26 Dose: 2 munits/min, 12 mls/hr Oxytocin/Lactated Ringer's (Pitocin In Lr 10 Units/1,000 Ml) 10 unit in 1,000 mls @ 100 mls/hr IV .CONTINUOUS ABEL; Protocol Nalbuphine HCl (Nubain) 10 mg IVPUSH Q2H PRN PRN Reason: Pain Ondansetron HCl (Zofran) 4 mg IVPUSH Q4H PRN PRN Reason: Nausea/Vomiting Sodium Chloride (Saline Flush) 10 ml FLUSH ASDIRECTED PRN PRN Reason: Keep Vein Open Assessment/Plan Comment:: 1. 40-1/7 week intrauterine , admitted for elective induction of labor for a trial of labor after section for an attempt at vaginal after section. 2. History of with first done for HELLP syndrome at 37 weeks gestation. 3. Group B strep screen is negative 4. Patient is interested in an epidural for labor analgesia 5. Patient has had her T dap and flu immunization during this . 6. Patient plans to breast-feed. Plan: 1. Pitocin/artificial rupture membranes induction of labor. Procedure, risks, benefits, alternatives of care including repeat section discussed in detail patient. She appears understand and wishes to proceed with a trial of labor after section for vaginal after section. 2. Precautions regarding trial of labor after section for an attempt at vaginal after section include the following: labs are drawn upon admission, patient to have near continuous electronic monitoring, consent fully signed for and for repeat section, anesthesia and surgery per OB informed of the patient's presence in labor and delivery. 3. CBC, type and screen, RPR on admission 4. Support breast-feeding decision 5. Anticipate normal spontaneous vaginal delivery-
--- NOTE | 2020-03-05 19:06 | PCM.SN.2 ---
- Free Text/Narrative Note: Delivery note: Chichi is a 34-year-old 4 now para 4004 white female who was admitted on the afternoon of 03/05/2020 at 40-1/7 weeks gestational age with a final KAVITA of 03/04/2020 for elective induction of labor. Patient has a history of section with her first delivery was done for HELLP syndrome. She has successfully 2 and was desiring with this . She started on Pitocin induction and shortly thereafter underwent artificial rupture membranes with resultant clear amniotic fluid. She progressed within the course of 4-5 hours to complete cervical dilation by approximately 1830 hrs. She had an epidural in place for labor analgesia. At 1841 hrs. on 03/05/2020 patient delivered a viable, cade, female infant with Apgars of 8 and 9, weight of 3650 g (8 pounds 0.7 ounces),a length of 19.0 inches in a right occiput anterior position. Baby was placed on mom's abdomen. The umbilical cord was locked pulsate for 2-3 minutes. Pitocin was increased to 500 mL per hour to facilitate increase in uterine tone and decrease likelihood of bleeding. The umbilical cord was then cut revealing a three-vessel cord. The cord blood was obtained. The perineum and vagina were appeared intact and no suturing was required. At 1847 hrs. the placenta delivered in a Negro presentation, appeared intact and complete and was discarded per patient desire. Estimated blood loss was 100 mL. Patient plans to breast-feed. Condition: Good.
[2020-03-05] MEDS ORDERED: Witch Hazel Medicated Pads 40/Jar TOP PRN (19:52)
[2020-03-05] MEDS ORDERED: Benzocaine/Menthol 20%-0.5% Spray 56 GM Canister TOP PRN (19:52)
[2020-03-05] MEDS ORDERED: Docusate Sodium 100 MG Cap PO PRN (19:52)
[2020-03-05] MEDS ORDERED: Acetaminophen 325 MG Tab PO PRN (19:52)
[2020-03-05] MEDS: Ibuprofen 600 MG Tab PO PRN (20:14)
[2020-03-06] MEDS ORDERED: Bupivacaine 0.25% 10 ML SDV ONE
[2020-03-06] MEDS: Ibuprofen 600 MG Tab PO PRN ×2 (05:27→13:20)
--- NOTE | 2020-03-06 09:05 | PCM48HPAN ---
Post Anesthesia Note - EVALUATION WITHIN 48HRS OF ANESTHETIC Vital Signs in Normal Range: Yes Patient Participated in Evaluation: Yes Respiratory Function Stable: Yes Airway Patent: Yes Cardiovascular Function Stable: Yes Hydration Status Stable: Yes Pain Control Satisfactory: Yes Nausea and Vomiting Control Satisfactory: Yes Mental Status Recovered: Yes Vital Signs: Last Vital Signs Temp 36.9 C 03/06/20 08:50 Pulse 63 03/06/20 08:35 Resp 16 03/06/20 08:35 BP 128/78 03/06/20 08:35 Pulse Ox 97 03/06/20 08:35
--- NOTE | 2020-03-06 09:18 | PCM.SN.2 ---
- Free Text/Narrative Note: note: day #1?status post Patient is doing well in the period. Minimal lochia, voiding well, ambulated without problems. Nursing without concerns. Patient is afebrile, vital signs are stable Abdomen is flat, soft, uterus is below the umbilicus and is firm and nontender. Legs are nontender. Assessment: recovery going well. Plan: Routine care. Patient to be discharged home within the next 24- 48 hours.
--- NOTE | 2020-03-06 16:25 | PCM.DCSUM1 ---
Discharge Summary - Hospital Course Free Text/Narrative:: Chichi is a 34-year-old 4 now para 4004 white female who was admitted on the afternoon of 03/05/2020 at 40-1/7 weeks gestational age with a final KAVITA of 03/04/2020 for elective induction of labor. Patient has a history of section with her first delivery was done for HELLP syndrome. She has successfully 2 and was desiring with this . She started on Pitocin induction and shortly thereafter underwent artificial rupture membranes with resultant clear amniotic fluid. She progressed within the course of 4-5 hours to complete cervical dilation by approximately 1830 hrs. She had an epidural in place for labor analgesia. At 1841 hrs. on 03/05/2020 patient delivered a viable, cade, female with Apgars of 8 and 9, weight of 3650 g (8 pounds 0.7 ounces),a length of 19.0 inches in a right occiput anterior position. Baby was placed on mom's abdomen. The umbilical cord was locked pulsate for 2-3 minutes. Pitocin was increased to 500 mL per hour to facilitate increase in uterine tone and decrease likelihood of bleeding. The umbilical cord was then cut revealing a three-vessel cord. The cord blood was obtained. The perineum and vagina were appeared intact and no suturing was required. At 1847 hrs. the placenta delivered in a Negro presentation, appeared intact and complete. Patient is breast-feeding without problems. She is ambulating well, voiding without concerns and has minimal lochia. Patient wishes to be discharged. Condition: Good. Diagnosis: Stroke: No - Discharge Data Discharge Date: 03/06/20 Discharge Disposition: Home, Self-Care 01 Condition: Good - Referral to Home Health Primary Care Physician: Kemal Ribeiro MD - Patient Instructions Diet: Regular Diet as Tolerated (Nursing diet with increase calories and calcium as recommended) Activity: As Tolerated (No intercourse or tampons until bleeding resolves) Driving: May Drive Today Showering/Bathing: May Shower (May take a bath) Notify Provider of: Fever, Increased Pain, Swelling and Redness, Nausea and/or Vomiting - Discharge Plan Home Medications: Home Meds No122/Iron/Folic Acid [ Multi Tablet] 1 each PO DAILY 11/22/17 [History] Aspirin [Aspirin EC] 81 mg PO DAILY 03/05/20 [History] Iron,Carbonyl [Perfect Iron] 25 mg PO DAILY 03/05/20 [History] Acetaminophen [Tylenol] 650 mg PO Q4H PRN tablet 03/06/20 [Rx] Ibuprofen [Motrin] 600 mg PO Q4H PRN tablet 03/06/20 [Rx] Referrals: Kemal Ribeiro MD [Primary Care Provider] - (Return to [facility] weeks for evaluation.) - Discharge Summary/Plan Comment DC Time >30 min.: No Discharge Summary/Plan Comment: Discharge instructions: 1. Discharge home 2. Diet, activity and follow-up discussed with patient. Recommend nursing diet with increased calories and calcium. 3. Precautions given concern increased pain, bleeding, temperature, signs/ symptoms of DVT/PE. 4. Medications per home medication was printed, discussed with and given to the patient. 5. Return to clinic-Dr. Ribeiro[facility] in 2 weeks. Diagnosis: Term -delivered by Condition: Good - Patient Data Vitals - Most Recent: Last Vital Signs Temp 37.0 C 03/06/20 14:59 Pulse 63 03/06/20 14:59 Resp 14 03/06/20 14:59 BP 115/66 03/06/20 14:59 Pulse Ox 97 03/06/20 14:59 Weight - Most Recent: 98.43 kg I&O - Last 24 hours: Intake & Output 03/06/20 03/06/20 03/06/20 06:59 14:59 22:59 Intake Total 120 Balance 120 Lab Results - Last 24 hrs: Laboratory Results - last 24 hr 03/05/20 Range/Units 12:31 RPR Non-reactive (NONREACTIVE) Med Orders - Current: Current Medications Acetaminophen (Tylenol) 650 mg PO Q4H PRN PRN Reason: mild pain or fever Benzocaine/Menthol (Dermoplast Pain Relief [place]) 0 gm TOP ASDIRECTED PRN PRN Reason: Perineal Comfort Measure Last Admin: 03/05/20 20:14 Dose: 1 applic Docusate Sodium (Colace) 100 mg PO BID PRN PRN Reason: Constipation Last Admin: 03/05/20 20:15 Dose: 100 mg Ibuprofen (Motrin) 600 mg PO Q4H PRN PRN Reason: Mild pain or fever Last Admin: 03/06/20 13:20 Dose: 600 mg [place] (Tucks) 1 pad TOP ASDIRECTED PRN PRN Reason: Perineal Comfort Measure Last Admin: 03/05/20 20:13 Dose: 1 applic Discontinued Medications Bupivacaine HCl (Sensorcaine-Mpf 0.25%) 10 ml .ROUTE .STK-MED ONE Stop: 03/06/20 00:01 Diphenhydramine HCl (Benadryl) 25 mg IVPUSH Q6H PRN PRN Reason: pruritis Ephedrine Sulfate (Ephedrine Sulfate) 5 mg IVPUSH ASDIRECTED PRN PRN Reason: Hypotension Fentanyl (Sublimaze) 100 mcg EPIDUR Q3H PRN PRN Reason: Pain Last Admin: 03/05/20 14:51 Dose: 100 mcg Fentanyl/Bupivacaine HCl (Fentanyl/Bupivacaine/Ns 2 Mcg-0.125% 100 Ml) 100 ml EPIDUR ASDIRECTED PRN PRN Reason: Pain Last Admin: 03/05/20 14:52 Dose: 100 ml Lactated Ringer's (Ringers, Lactated) 1,000 mls @ 100 mls/hr IV ASDIRECTED ABEL Last Admin: 03/05/20 15:15 Dose: 100 mls/hr Oxytocin/Lactated Ringer's (Pitocin In Lr 10 Units/1,000 Ml) 10 unit in 1,000 mls @ 12 mls/hr IV TITRATE ABEL; Protocol Last Titration: 03/05/20 17:01 Dose: 12 munits/min, 72 mls/hr Oxytocin/Lactated Ringer's (Pitocin In Lr 10 Units/1,000 Ml) 10 unit in 1,000 mls @ 100 mls/hr IV .CONTINUOUS ABEL; Protocol Nalbuphine HCl (Nubain) 10 mg IVPUSH Q2H PRN PRN Reason: Pain Ondansetron HCl (Zofran) 4 mg IVPUSH Q4H PRN PRN Reason: Nausea/Vomiting Oxytocin (Pitocin) 10 unit IM ONETIME ONE Stop: 03/05/20 12:20 Last Admin: 03/05/20 22:56 Dose: Not Given Sodium Chloride (Saline Flush) 10 ml FLUSH ASDIRECTED PRN PRN Reason: Keep Vein Open
[2020-03-06 20:18] VITALS: BP 133/92; PULSE 69
== END 2020-03-06 20:30 | disposition home or self-care (01) | DRG 807 ==
LOC: JD.OB 12:10 → OBSVTOIN 18:41 → JD.OB 18:41
PROVIDERS: ADMIT Obstetrics & Gynecology; ATTEND Obstetrics & Gynecology
PROC: 10E0XZZ Delivery of Products of Conception, External Approach (ICD-10-PCS; principal; 2020-03-05)
PROC: 10907ZC Drainage of Amniotic Fluid, Therapeutic from Products of Conception, Via Natural or Artificial Opening (ICD-10-PCS; 2020-03-05)
PROC: 3E033VJ Introduction of Other Hormone into Peripheral Vein, Percutaneous Approach (ICD-10-PCS; 2020-03-05)
DX: O48.0 Post-term pregnancy (principal); Z37.0 Single live birth; O34.211 Maternal care for low transverse scar from previous cesarean delivery; Z3A.40 40 weeks gestation of pregnancy
CPT/HCPCS: 36415; 51702; 59025; 59409; 85025; 86592; 86850; 86900; 86901; A9270-GY; J2590; J3010; J3490; J7120